=== PATIENT | female | born 1960 | race Hispanic/Latino ===

== ENCOUNTER 2018-07-23 17:27 | Emergency (ER) | payer OTHER, SELFPAY ==
[2018-07-23] MEDS ORDERED: HYDROMORPHONE HCL 1 MG/ML INJ ONE (17:47)
[2018-07-23] MEDS ORDERED: ONDANSETRON 4 MG/2 ML VIAL ONE ×2 (17:47→18:29)
--- NOTE | 2018-07-23 18:11 | RAD REPORT ---
EXAM DESCRIPTION: RAD - Humerus Left - 07/23/2018 6:00 pm CLINICAL HISTORY: Fall, arm pain COMPARISON: None. FINDINGS: Transverse fracture of the proximal left humerus is present at the surgical neck. There is additional fracture of the greater tuberosity. There is 1/2 shaft width medial displacement of the s haft of the humerus relative to the humeral head. Shaft and distal humerus are normal. No abnormality at the elbow joint. IMPRESSION: Proximal left humerus fracture further detailed on left shoulder report.
--- NOTE | 2018-07-23 18:12 | RAD REPORT ---
EXAM DESCRIPTION: RAD - Shoulder Left 2 View - 07/23/2018 6:00 pm CLINICAL HISTORY: Fall, shoulder pain COMPARISON: None. TECHNIQUE: Internal and external rotation views of the left shoulder were obtained. FINDINGS: Transverse fracture is present at the surgical neck. There is 1/2 shaft width medial displ acement of the shaft of the humerus relative to the humeral head. No dislocation of the humeral head. Greater tuberosity is fractured as well with no significant distraction or displacement. No patholog ic bone component. AC joint is normal in appearance. Acromial humeral joint space is normal. IMPRESSION: Transverse fracture through the left humerus surgical neck with medial displacement of t he shaft. Greater tuberosity is fractured as well without distraction or displacement to any significant degree .
--- NOTE | 2018-07-23 18:13 | RAD REPORT ---
EXAM DESCRIPTION: RAD - Chest Single View - 07/23/2018 6:01 pm CLINICAL HISTORY: Fall, shoulder pain, chest pain COMPARISON: None. TECHNIQUE: AP portable chest image was obtained 1756 hours . FINDINGS: Lungs are clear. Heart and vasculature are normal. No measurable pleural effusion and no p neumothorax. Proximal left humerus fracture is separately detailed. No other acute bone process ident ifiable. No acute aortic findings suspected. IMPRESSION: No acute cardiopulmonary process. Left humerus fracture is separately detailed.
--- NOTE | 2018-07-23 18:24 | RAD REPORT ---
EXAM DESCRIPTION: CT - C Spine Wo Con - 07/23/2018 6:08 pm CLINICAL HISTORY: Fall, neck pain, left humerus fracture COMPARISON: None. TECHNIQUE: Axial 2 mm thick images of the cervical spine were obtained with sagittal and coronal rec onstruction images generated and reviewed. All CT scans are performed using dose optimization technique as appropriate and may include automated exposure control or mA/KV adjustment according to patient size. FINDINGS: Cervical bodies are normal in height. No fracture or acute cervical vertebral body finding . Significant C5-6 and C6-7 disc space narrowing is present with mild bilateral bony foraminal encroa chment. C1 ring is normally positioned relative to the occipital condyles to the skullbase. There is rotation of the C1 ring relative to the body of C2. This is usually a muscle spasm affect. There is normal po sitioning of the dens relative to the anterior arch of C1 indicating there is not likely a transverse ligament injury. No other abnormality identified. . Central canal detail is inherently limited on CT imaging. IMPRESSION: No cervical spine fracture. Mild type I atlantoaxial rotary subluxation. Dens is normally positioned relative to the anterior ar ch of C1 indicating the transverse ligament posterior to the dens would be intact. Subluxation is likely muscle spasm affect. This usually resolves with conservative therapy.
--- NOTE | 2018-07-23 18:44 | EDPHYS ---
Physician Documentation [facility] Name: Juli Perla Age: 58 yrs Sex: Female : 1960 Arrival Date: 07/23/2018 Time: 17:28 Bed 4 Private MD: ED Physician Ernesto Britt HPI: 07/24 08:18 This 58 yrs old Female presents to ER via EMS with complaints of Fall Injury. gs 08:18 Details of fall: The patient fell from a height, down approximately 5 stairs. Onset: gs The symptoms/episode began/occurred suddenly, just prior to arrival. Associated injuries: The patient sustained neck injury, pain with movement, anterior aspect of left shoulder. Severity of symptoms: At their worst the symptoms were severe, in the emergency department the symptoms are unchanged. The patient has not experienced similar symptoms in the past. The patient has not recently seen a physician. Historical: - Allergies: 07/23 17:39 No Known Allergies; hb - PMHx: 17:39 Diabetes - NIDDM; Hypertension; hb - PSHx: 17:39 Cholecystectomy; Tubal ligation; hb - Immunization history: Last tetanus immunization: - up to date. - Social history:: Smoking status: Patient/guardian denies using tobacco. - Ebola Screening: : No symptoms or risks identified at this time. ROS: 07/24 08:18 All other systems are negative. gs Exam: 08:18 Head/Face: Normocephalic, atraumatic. Eyes: Pupils equal round and reactive to light, gs extra-ocular motions intact. Lids and lashes normal. Conjunctiva and sclera are non-icteric and not injected. Cornea within normal limits. Periorbital areas with no swelling, redness, or edema. ENT: Nares patent. No nasal discharge, no septal abnormalities noted. Tympanic membranes are normal and external auditory canals are clear. Oropharynx with no redness, swelling, or masses, exudates, or evidence of obstruction, uvula midline. Mucous membranes moist. 08:18 Chest/axilla: Normal chest wall appearance and motion. Nontender with no deformity. No lesions are appreciated. Cardiovascular: Regular rate and rhythm with a normal S1 and S2. No gallops, murmurs, or rubs. Normal PMI, no JVD. No pulse deficits. Respiratory: Lungs have equal breath sounds bilaterally, clear to auscultation and percussion. No rales, rhonchi or wheezes noted. No increased work of breathing, no retractions or nasal flaring. Abdomen/GI: Soft, non-tender, with normal bowel sounds. No distension or tympany. No guarding or rebound. No evidence of tenderness throughout. Back: No spinal tenderness. No costovertebral tenderness. Full range of motion. Skin: Warm, dry with normal turgor. Normal color with no rashes, no lesions, and no evidence of cellulitis. Neuro: Awake and alert, GCS 15, oriented to person, place, time, and situation. Cranial nerves II-XII grossly intact. Motor strength 5/5 in all extremities. Sensory grossly intact. Cerebellar exam normal. Normal gait. 08:18 Constitutional: The patient appears alert, awake, in obvious distress, severely distressed. 08:18 Neck: C-spine: Back board SOAKER HIDES vertebral tenderness, that is moderate, appreciated at C4 and C5. 08:18 Musculoskeletal/extremity: Extremities: noted in the anterior aspect of left shoulder and left bicep: decreased ROM, deformity, pain, swelling, tenderness, Pulses: are normal with no appreciated deficits. Vital Signs: 07/23 17:33 BP 185 / 79; Pulse 72; Resp 19; Temp 97.8(O); Pulse Ox 100% on R/A; Weight 82.55 kg tw2 (R); Height 5 ft. 5 in. (165.10 cm); Pain 10/10; 18:45 BP 185 / 82; Pulse 56; Resp 18; Pulse Ox 95% on R/A; Pain 8/10; dh3 19:20 BP 178 / 87; Pulse 59; Resp 17 S; Temp 98.2(O); Pulse Ox 98% on R/A; cc3 17:33 Body Mass Index 30.29 (82.55 kg, 165.10 cm) tw2 [place] Coma Score: 17:33 Eye Response: spontaneous(4). Verbal Response: oriented(5). Motor Response: obeys hb commands(6). Total: 15. Trauma Score (Adult): 17:33 Eye Response: spontaneous(1); Verbal Response: oriented(1); Motor Response: obeys hb commands(2); Systolic BP: > 89 mm Hg(4); Respiratory Rate: 10 to 29 per min(4); [place] Score: 15; Trauma Score: 12 18:30 Eye Response: spontaneous(1); Verbal Response: oriented(1); Motor Response: obeys hb commands(2); Systolic BP: > 89 mm Hg(4); Respiratory Rate: 10 to 29 per min(4); [place] Score: 15; Trauma Score: 12 MDM: 17:41 Patient medically screened. 07/24 08:18 Differential diagnosis: closed head injury, contusion, fracture. Data reviewed: vital gs signs, nurses notes, radiologic studies. Counseling: I had a detailed discussion with the patient and/or guardian regarding: the historical points, exam findings, and any diagnostic results supporting the discharge/admit diagnosis, radiology results, the need for outpatient follow up, a orthopedic surgeon. Response to treatment: the patient's symptoms have markedly improved after treatment, and as a result, I will discharge patient. 07/23 17:47 Order name: Humerus Left XRAY; Complete Time: 18:41 07/23 17:47 Order name: Shoulder Left (2 View) XRAY; Complete Time: 18:41 07/23 17:47 Order name: CT C Spine; Complete Time: 18:41 07/23 17:58 Order name: Chest Single View XRAY; Complete Time: 18:41 Administered Medications: 07/23 17:36 Drug: Dilaudid 1 mg Route: IVP; Site: right antecubital; hb 18:00 Follow up: Response: No adverse reaction; Pain is decreased tw2 17:36 Drug: Zofran 4 mg Route: IVP; Site: right antecubital; hb 18:00 Follow up: Response: No adverse reaction tw2 18:33 Drug: Zofran 4 mg Route: IVP; Site: right antecubital; hb 19:00 Follow up: Response: No adverse reaction; Nausea unchanged tw2 19:20 Drug: TORadol - Ketorolac 15 mg Route: IVP; Site: right antecubital; cc3 19:40 Follow up: Response: No adverse reaction cc3 Disposition: 07/23/18 18:44 Discharged to Home. Impression: 2-part displaced fracture of surgical neck of left humerus, Sprain of ligaments of cervical spine. - Condition is Stable. - Discharge Instructions: Humerus Fracture Treated With Immobilization, Uzis-[id number], Cervical Sprain, Managing Your Hypertension. - Prescriptions for Tylenol- Codeine #4 300-60 mg Oral Tablet - take 1 tablet by ORAL route every 6 hours As needed; 12 tablet. Zofran 4 mg Oral Tablet - take 1 tablet by ORAL route every 12 hours As needed; 6 tablet. - Medication Reconciliation Form, Thank You Letter, Antibiotic Education, Prescription Opioid Use form. - Follow up: Ventura Juárez MD; When: 2 - 3 days; Reason: Re-evaluation by your physician. Signatures: Dispatcher [employer] EDMS Debbie Olson RN RN Ernesto Britt MD MD Jaz Whatley 3 Marianela Peters RN tw2 Corrections: (The following items were deleted from the chart) 19:38 18:44 07/23/2018 18:44 Discharged to Home. Impression: 2-part displaced fracture of cc3 surgical neck of left humerus; Sprain of ligaments of cervical spine. Condition is Stable. Forms are Medication Reconciliation Form, Thank You Letter, Antibiotic Education, Prescription Opioid Use. Follow up: Dr. Ventura Juárez; When: 2 - 3 days; Reason: Re-evaluation by your physician. gs
--- NOTE | 2018-07-23 18:44 | ER ---
Nurse's Notes [facility] Name: Juli Perla Age: 58 yrs Sex: Female : 1960 Arrival Date: 07/23/2018 Time: 17:28 Bed 4 Private MD: Diagnosis: 2-part displaced fracture of surgical neck of left humerus;Sprain of ligaments of cervical spine Presentation: 07/23 17:30 Presenting complaint: EMS states: pt was cleaning the stage at the [employer], was walking tw2 backwards and fell off the stage landed on LEFT shoulder, and LEFT arm, no crepitus/deformity to neck or back, deformity noted to LEFT arm, possible complex humerus fx, 100 mcg Fentanyl given, no relief of pain. Transition of care: patient was not received from another setting of care. Onset of symptoms was July 23, 2018. Risk Assessment: Do you want to hurt yourself or someone else? Patient reports no desire to harm self or others. Initial Sepsis Screen: Does the patient meet any 2 criteria? No. Patient's initial sepsis screen is negative. Does the patient have a suspected source of infection? No. Patient's initial sepsis screen is negative. Care prior to arrival: sling/splint applied to LEFT arm IV initiated. 18 GA, in the right antecubital area. 17:30 Method Of Arrival: EMS: [facility] tw2 17:30 Acuity: PRAVIN 2 tw2 17:36 Mechanism of Injury: Fall. Trauma event details[place] [facility] [place]. Injury occurred: July 23, 2018. Triage Assessment: 17:32 General: Appears uncomfortable, obese, Behavior is crying. Pain: Complains of pain in tw2 left arm. Trauma Activation: Alert Physician: ED Physician; Name: ; Notified At: ; Arrived At: Physician: General Surgeon; Name: ; Notified At: ; Arrived At: Physician: Radiology; Name: ; Notified At: ; Arrived At: Physician: Respiratory; Name: ; Notified At: ; Arrived At: Physician: Lab; Name: ; Notified At: ; Arrived At: Historical: - Allergies: 17:39 No Known Allergies; hb - PMHx: 17:39 Diabetes - NIDDM; Hypertension; hb - PSHx: 17:39 Cholecystectomy; Tubal ligation; hb - Immunization history: Last tetanus immunization: - up to date. - Social history:: Smoking status: Patient/guardian denies using tobacco. - Ebola Screening: : No symptoms or risks identified at this time. Screenin:39 Abuse screen: Denies threats or abuse. Denies injuries from another. Nutritional hb screening: No deficits noted. Tuberculosis screening: No symptoms or risk factors identified. Fall Risk None identified. Primary Survey: 17:30 NO uncontrolled hemorrhage observed. A: The patient is alert. Airway: patent, No hb supplemental oxygen in use on arrival. Oral cavity: clear, Trachea midline. Breathing/Chest: Respiratory pattern: regular, Respiratory effort: spontaneous, unlabored, Breath sounds: clear, bilaterally. Chest inspection: symmetrical rise and fall of the chest. Circulation: Pulses: palpable . Skin color: pink, Skin temperature: warm, dry. Disability Alert. Exposure/Environment: All clothing and personal items were removed. Forensic evidence collection is not deemed to be indicated at this time. Items placed in patient belonging bag. There is no evidence of uncontrolled external bleeding. A warming method has been applied: A warm blanket has been provided to the patient. 18:30 Reassessment Airway Airway Patent Breathing/Chest Respiratory pattern Regular hb Respiratory effort Spontaneous Unlabored Chest inspection Symmetrical Circulation Color [place] Temperature Warm Dry Disability Alert. Secondary Survey: 17:32 HEENT: No deficits noted. Gastrointestinal: No deficits noted. : No deficits noted. hb Musculoskeletal: LUE. Assessment: 17:38 General: Appears uncomfortable, obese, Behavior is crying. Pain: Complains of pain in tw2 left arm and left shoulder. Neuro: Level of Consciousness is awake, alert, obeys commands, Oriented to person, place, time, situation. EENT: No signs and/or symptoms were reported regarding the EENT system. Cardiovascular: Heart tones S1 S2 Patient's skin is warm and dry. Respiratory: Airway is patent Respiratory effort is even, unlabored, Respiratory pattern is regular, symmetrical, Breath sounds are clear bilaterally. GI: Abdomen is round non-distended, obese, Bowel sounds present X 4 quads. : No signs and/or symptoms were reported regarding the genitourinary system. Derm: No signs and/or symptoms reported regarding the dermatologic system. Musculoskeletal: Range of motion: limited in left shoulder Reports pain in left shoulder. 18:30 Reassessment: Patient appears in no apparent distress at this time. Patient and/or hb family updated on plan of care and expected duration. Pain level reassessed. Patient is alert, oriented x 3, equal unlabored respirations, skin warm/dry/pink. 18:56 Reassessment: pt vomiting at this time, NOT ready for discharge, Dr. Britt aware of pts tw2 condition at this time. 19:15 Reassessment: Patient appears in no apparent distress at this time. Patient and/or cc3 family updated on plan of care and expected duration. Pain level reassessed. Patient is alert, oriented x 3, equal unlabored respirations, skin warm/dry/pink. 19:40 Reassessment: Patient appears in no apparent distress at this time. Patient and/or cc3 family updated on plan of care and expected duration. Pain level reassessed. Patient is alert, oriented x 3, equal unlabored respirations, skin warm/dry/pink. Dr. Britt discharged the patient home with prescription given. IV cannula removed and patient left ER vitally stable by wheelchair escorted by me and the patient's family. Patient states symptoms have improved. Vital Signs: 17:33 BP 185 / 79; Pulse 72; Resp 19; Temp 97.8(O); Pulse Ox 100% on R/A; Weight 82.55 kg tw2 (R); Height 5 ft. 5 in. (165.10 cm); Pain 10/10; 18:45 BP 185 / 82; Pulse 56; Resp 18; Pulse Ox 95% on R/A; Pain 8/10; dh3 19:20 BP 178 / 87; Pulse 59; Resp 17 S; Temp 98.2(O); Pulse Ox 98% on R/A; cc3 17:33 Body Mass Index 30.29 (82.55 kg, 165.10 cm) tw2 [place] Coma Score: 17:33 Eye Response: spontaneous(4). Verbal Response: oriented(5). Motor Response: obeys hb commands(6). Total: 15. Trauma Score (Adult): 17:33 Eye Response: spontaneous(1); Verbal Response: oriented(1); Motor Response: obeys hb commands(2); Systolic BP: > 89 mm Hg(4); Respiratory Rate: 10 to 29 per min(4); [place] Score: 15; Trauma Score: 12 18:30 Eye Response: spontaneous(1); Verbal Response: oriented(1); Motor Response: obeys hb commands(2); Systolic BP: > 89 mm Hg(4); Respiratory Rate: 10 to 29 per min(4); [place] Score: 15; Trauma Score: 12 ED Course: 17:28 Patient arrived in ED. dm5 17:28 Ernesto Britt MD is Attending Physician. gs 17:29 Marianela Peters RN is Primary Nurse. tw2 17:32 Triage completed. tw2 17:32 Arm band placed on. tw2 17:33 Patient has correct armband on for positive identification. Placed in gown. Bed in low hb position. Call light in reach. Side rails up X2. 17:39 Patient maintains SpO2 saturation greater than 95% on room air. Thermoregulation: warm hb blanket given to patient. 18:00 Humerus Left XRAY In Process Unspecified. EDMS 18:00 Shoulder Left (2 View) XRAY In Process Unspecified. EDMS 18:01 Chest Single View XRAY In Process Unspecified. EDMS 18:07 CT C Spine In Process Unspecified. EDMS 18:43 Ventura Juárez MD is Referral Physician. gs 19:09 Report given to DANIEL Sebastian - pending reevaluation of pts condition PRIOR to discharge. tw2 19:40 No provider procedures requiring assistance completed. IV discontinued, intact, cc3 bleeding controlled, No redness/swelling at site. Pressure dressing applied. Administered Medications: 17:36 Drug: Dilaudid 1 mg Route: IVP; Site: right antecubital; hb 18:00 Follow up: Response: No adverse reaction; Pain is decreased tw2 17:36 Drug: Zofran 4 mg Route: IVP; Site: right antecubital; hb 18:00 Follow up: Response: No adverse reaction tw2 18:33 Drug: Zofran 4 mg Route: IVP; Site: right antecubital; hb 19:00 Follow up: Response: No adverse reaction; Nausea unchanged tw2 19:20 Drug: TORadol - Ketorolac 15 mg Route: IVP; Site: right antecubital; cc3 19:40 Follow up: Response: No adverse reaction cc3 Intake: 17:33 PO: 0ml; Total: 0ml. hb Output: 17:33 Urine: 0ml; Total: 0ml. hb Outcome: 18:44 Discharge ordered by . 19:38 Patient left the ED. cc3 19:40 Discharged to home via wheelchair, with family. cc3 19:40 Condition: stable 19:40 Discharge instructions given to patient, family, Instructed on discharge instructions, follow up and referral plans. medication usage, Demonstrated understanding of instructions, follow-up care, medications, Prescriptions given X 2. 19:40 Patient's length of stay was not longer than 2 hours. cc3 Signatures: Dispatcher [employer] EDMS Mery Arias RN RN dm5 Debbie Olson RN RN hb Wise, Tara RN RN 2 Nasreen Card 3 Ernesto Britt MD MD gs Cordel, Charlene cc3
[2018-07-23] MEDS ORDERED: KETOROLAC 30 MG/ML INJ ONE (19:34)
== END 2018-07-23 19:38 | disposition home or self-care (01) ==
LOC: ER 17:27
DX: S42.222A 2-part displaced fracture of surgical neck of left humerus, initial encounter for closed fracture (principal); S13.4XXA Sprain of ligaments of cervical spine, initial encounter; W10.9XXA Fall (on) (from) unspecified stairs and steps, initial encounter; Y93.9 Activity, unspecified; Y92.9 Unspecified place or not applicable; I10 Essential (primary) hypertension
CPT/HCPCS: 71045; 72125; 96374; 96375; 99284; J1170; J2405

== ENCOUNTER → 2023-04-01 | Emergency (ER) | payer OTHER ==
--- NOTE | 2023-04-01 15:09 | RAD REPORT ---
EXAM DESCRIPTION: CT - [id number] - 04/01/2023 2:58 pm CLINICAL HISTORY: Trauma, head and neck injury. PAIN COMPARISON: C Spine Wo Con dated 07/23/2018; Head Brain Wo Cont dated 06/15/2017 TECHNIQUE: Axial 5 mm thick images of the head were obtained. Axial 2 mm thick images of the cervical spine were obtained with sagittal and coronal reconstruction images generated and reviewed. All CT scans are performed using dose optimization technique as appropriate and may include automated exposure control or mA/KV adjustment according to patient size. FINDINGS: CT HEAD WITHOUT CONTRAST: No acute hemorrhage, hydrocephalus or extra-axial collection is identified.Stable calcified meningiom a posteriorly.No areas of brain edema or midline shift. The paranasal sinuses and mastoids are clear.The calvarium is intact. CT CERVICAL SPINE WITHOUT CONTRAST: No fracture or subluxation.Mild lower cervical degenerative changes.No prevertebral soft tissues swel ling is identified. IMPRESSION: No acute intracranial or cervical spine findings.
--- NOTE | 2023-04-01 15:14 | RAD REPORT ---
EXAM DESCRIPTION: CT - CTFB CLINICAL HISTORY: FACIAL PAIN Trauma, facial pain COMPARISON: No comparisons TECHNIQUE: Axial 2 mm thick images of the face were obtained with sagittal and coronal reconstructio n images. All CT scans are performed using dose optimization technique as appropriate and may include automated exposure control or mA/KV adjustment according to patient size. FINDINGS: No acute facial bone fracture is seen.The mandible is intact. The globes and orbital contents are grossly unremarkable.Mild soft tissue swelling is seen surroundin g the right orbit.The paranasal sinuses and mastoids are clear. Small radiopaque foreign body is seen anterior left zygomatic soft tissues. IMPRESSION: Negative for facial bone fracture. [id number] right periorbital soft tissue swelling.
--- NOTE | 2023-04-01 15:22 | ER ---
Nurse's Notes [facility] Name: Juli Perla Age: 63 yrs Sex: Female : 1960 Arrival Date: 04/01/2023 Time: 14:37 Bed 11 Private MD: Diagnosis: Contusion of eyelid and periocular area;Unspecified injury of head, initial encounter Presentation: 04/01 14:55 Note this nurse called patient for triage. however, patient was already back for her CT.ap3 15:04 Chief complaint: Patient states: she was on her way out to her car to go to work this ap3 morning when she tripped and fell, hitting her right side of her face on her tire. patient denies LOC and states she is not on blood thinners. Coronavirus screen: At this time, the client does not indicate any symptoms associated with coronavirus-19. Ebola Screen: No symptoms or risks identified at this time. Mechanism of Injury: The problem was sustained at home, resulted from a fall, while walking. Initial Sepsis Screen: Does the patient meet any 2 criteria? No. Patient's initial sepsis screen is negative. Does the patient have a suspected source of infection? No. Patient's initial sepsis screen is negative. Risk Assessment: Do you want to hurt yourself or someone else? Patient reports no desire to harm self or others. 15:04 Method Of Arrival: Ambulatory ap3 15:04 Acuity: PRAVIN 3 ap3 15:08 Onset of symptoms was April 01, 2023 at 06:50. ap3 Triage Assessment: 15:07 General: Appears in no apparent distress. Behavior is calm, cooperative, appropriate ap3 for age. Pain: Complains of pain in right eye Pain currently is 1 out of 10 on a pain scale. Pain began suddenly. Neuro: Level of Consciousness is awake, alert, obeys commands, Oriented to person, place, time, situation. Neuro: Reports fall. Cardiovascular: Patient's skin is warm and dry. Respiratory: Airway is patent Respiratory effort is even, unlabored, Respiratory pattern is regular, symmetrical. Derm: Bruising that is on right eye. Historical: - Allergies: 15:06 No Known Allergies; ap3 - PMHx: 15:06 Diabetes - NIDDM; Hypertension; ap3 - Immunization history:: Client reports receiving the 2nd dose of the Covid vaccine, Flu vaccine is up to date. - Social history:: Smoking status: Patient denies any tobacco usage or history of. Screenin:08 [facility] ED Fall Risk Assessment (Adult) History of falling in the last 3 months, ap3 including since admission Yes- single mechanical fall (1 pt) Confusion or Disorientation No (0 pts) Intoxicated or Sedated No (0 pts) Impaired Gait No (0 pts) Mobility Assist Device Used No (0 pt) Altered Elimination No (0 pt). Abuse screen: Denies threats or abuse. Nutritional screening: No deficits noted. Tuberculosis screening: No symptoms or risk factors identified. Assessment: 15:30 General: Appears in no apparent distress. Behavior is calm, cooperative. Pain: tl4 Complains of pain in face. Neuro: No deficits noted. Cardiovascular: No deficits noted. Denies chest pain, lightheadedness, palpitations, syncope. Respiratory: No deficits noted. Denies cough, shortness of breath. GI: No signs and/or symptoms were reported involving the gastrointestinal system. : No signs and/or symptoms were reported regarding the genitourinary system. Vital Signs: 15:04 BP 140 / 66; Pulse 69; Resp 17; Temp 97.7; Pulse Ox 98% ; Weight 79.38 kg; Height 4 ft. ap3 11 in. ; Pain 1/10; 15:31 BP 134 / 70; Pulse 70; Resp 18; Pulse Ox 98% on R/A; Pain 5/10; tl4 15:04 Body Mass Index 35.35 (79.38 kg, 149.86 cm) ap3 15:04 Pain Scale: Adult ap3 15:31 Pain Scale: Adult tl4 [place] Coma Score: 14:48 Eye Response: spontaneous(4). Motor Response: obeys commands(6). Verbal Response: kb oriented(5). Total: 15. 15:04 Eye Response: spontaneous(4). Motor Response: obeys commands(6). Verbal Response: ap3 oriented(5). Total: 15. 15:31 Eye Response: spontaneous(4). Motor Response: obeys commands(6). Verbal Response: tl4 oriented(5). Total: 15. ED Course: 14:39 Patient arrived in ED. gm2 14:41 Sarah Garcia FNP-C is PHCP. kb 14:41 Silver Ferro MD is Attending Physician. kb 15:00 CT Facial Bones W/O Con In Process Unspecified. EDMS 15:00 CT Head C Spine In Process Unspecified. EDMS 15:06 Triage completed. ap3 15:08 Arm band placed on right wrist. ap3 15:28 Zac Marsh is Primary Nurse. tl4 15:31 Patient has correct armband on for positive identification. Placed in gown. Bed in low tl4 position. Call light in reach. Side rails up X 1. Adult w/ patient. Provided Education on: ed process. Client placed on continuous cardiac and pulse oximetry monitoring. NIBP monitoring applied. Door closed. Noise minimized. Lights dimmed. Moved to private room. Warm blanket given. 15:32 No provider procedures requiring assistance completed. Patient did not have IV access tl4 during this emergency room visit. Administered Medications: No medications were administered Medication: 15:31 VIS not applicable for this client. tl4 Outcome: 15:22 Discharge ordered by . kb 15:32 Discharged to home ambulatory, with family, tl4 15:32 Condition: stable 15:32 Discharge instructions given to patient, family, Instructed on discharge instructions, follow up and referral plans. Demonstrated understanding of instructions, follow-up care, 15:32 Patient left the ED. tl4 Signatures: Dispatcher [employer] Sarah Moran, Teri aShu, RN RN Alondra Morales gm2 Zac Marsh tl4
--- NOTE | 2023-04-01 15:22 | EDPHYS ---
Physician Documentation [facility] Name: Juli Perla Age: 63 yrs Sex: Female : 1960 Arrival Date: 04/01/2023 Time: 14:37 Bed 11 Private MD: ED Physician Silver Ferro HPI: 04/01 14:48 This 63 yrs old Female presents to ER via Unassigned with complaints of Head kb Injury-Adult. 14:48 Pt is a 63 year old female who tripped and fell this morning at 0650, hitting right kb caodaism/eye area on the tire of the vehicle. Denies loc. States she has had a headache. Called her PCP and was told to come to the ER for evaluation. Historical: - Allergies: 15:06 No Known Allergies; ap3 - PMHx: 15:06 Diabetes - NIDDM; Hypertension; ap3 - Immunization history:: Client reports receiving the 2nd dose of the Covid vaccine, Flu vaccine is up to date. - Social history:: Smoking status: Patient denies any tobacco usage or history of. ROS: 14:46 Constitutional: Negative for fever, chills, and weight loss, kb 14:46 Skin: Positive for ecchymosis, swelling, of the right caodaism and right eye, 14:46 Neuro: Positive for headache, 14:46 All other systems are negative, Exam: 14:46 Constitutional: This is a well developed, well nourished patient who is awake, alert, kb and in no acute distress. ENT: Moist Mucous membranes Cardiovascular: Regular rate Respiratory: Respirations even and unlabored. No increased work of breathing. Talking in full sentences Skin: Warm, dry with normal turgor. Normal color. MS/ Extremity: Pulses equal, no cyanosis. Neurovascular intact. Full, normal range of motion. Neuro: Awake and alert, GCS 15, oriented to person, place, time, and situation. Moves all extremities. Normal gait. 14:46 Head/face: Noted is no obvious of injury or deformity except contusion, that is superficial, of the right eye and right caodaism, ecchymosis, swelling, 14:46 Eyes: Periorbital structures: swelling, that is mild, that is moderate, on the right upper eyelid and right lower eyelid, contusion, ecchymosis, Pupils: equal, round, and reactive to light and accomodation, Extraocular movements: intact throughout, Conjunctiva: normal, Vital Signs: 15:04 BP 140 / 66; Pulse 69; Resp 17; Temp 97.7; Pulse Ox 98% ; Weight 79.38 kg; Height 4 ft. ap3 11 in. ; Pain 1/10; 15:31 BP 134 / 70; Pulse 70; Resp 18; Pulse Ox 98% on R/A; Pain 5/10; tl4 15:04 Body Mass Index 35.35 (79.38 kg, 149.86 cm) ap3 15:04 Pain Scale: Adult ap3 15:31 Pain Scale: Adult tl4 [place] Coma Score: 14:48 Eye Response: spontaneous(4). Motor Response: obeys commands(6). Verbal Response: kb oriented(5). Total: 15. 15:04 Eye Response: spontaneous(4). Motor Response: obeys commands(6). Verbal Response: ap3 oriented(5). Total: 15. 15:31 Eye Response: spontaneous(4). Motor Response: obeys commands(6). Verbal Response: tl4 oriented(5). Total: 15. MDM: 14:42 Patient medically screened. kb 14:48 Differential diagnosis: Contusion of Hematoma on Intracranial bleed- Concussion kb fracture. Data reviewed: vital signs, nurses notes. 15:21 Counseling: I had a detailed discussion with the patient and/or guardian regarding the kb historical points, exam findings, and any diagnostic results supporting the discharge/admit diagnosis, radiology results, the need for outpatient follow up, a family practitioner, to return to the emergency department if symptoms worsen or persist or if there are any questions or concerns that arise at home. 04/01 14:46 Order name: CT Facial Bones W/O Con; Complete Time: 15:21 kb 04/01 14:46 Order name: CT Head C Spine; Complete Time: 15:10 kb Administered Medications: No medications were administered Disposition Summary: 04/01/23 15:22 Discharge Ordered Notes: Location: Home kb Condition: Stable kb Diagnosis - Contusion of eyelid and periocular area kb - Unspecified injury of head, initial encounter kb Followup: kb - With: Emergency Department - When: As needed - Reason: Worsening of condition Followup: kb - With: Private Physician - When: 2 - 3 days - Reason: Recheck today's complaints, Continuance of care, Re-evaluation by your physician Discharge Instructions: - Discharge Summary Sheet kb - Head Injury, Adult, [id number] kb - Eye Contusion, [id number] kb Forms: - Medication Reconciliation Form kb - Thank You Letter kb - Antibiotic Education kb - Prescription Opioid Use kb - Patient Portal Instructions kb - Leadership Thank You Letter kb - Work release form tl4 Signatures: Dispatcher [employer] EDSarah Dougherty FNP-C FNP-Ckb Prokisch, Amanda, RN RN ap3
[2023-04-01 17:52] VITALS: BP 134/70; TEMP 97.7; O2SAT 98
== END ==
LOC: ER 14:37
DX: S00.11XA Contusion of right eyelid and periocular area, initial encounter (principal); S09.90XA Unspecified injury of head, initial encounter; E11.9 Type 2 diabetes mellitus without complications; I10 Essential (primary) hypertension
CPT/HCPCS: 70450; 70486; 72125; 76377; 99283